=== PATIENT | female | born 1995 | race Caucasian/White ===

== ENCOUNTER → 2019-09-21 | Outpatient (CLI) | payer OTHER ==
--- NOTE | 2019-09-21 19:03 | Diagnostic Imaging Report ---
PROCEDURE: US Thyroid. TECHNIQUE: Multiple real-time grayscale images were obtained of the thyroid in various projections. INDICATION: Thyromegaly Right and left lobes of the thyroid gland measure 4.7 x 1.5 x 1.4 cm and 4.7 x 0.9 x 1.2 cm, respectively. There is no evidence of thyroid mass. No hyperemia is identified. There is no evidence of periglandular abnormalities. IMPRESSION: Unremarkable thyroid ultrasound. Dictated by: Dictated on workstation # [id number]
== END ==
LOC: RAD 14:50
PROVIDERS: ATTEND Nurse Practitioner Primary Care
DX: E04.9 Nontoxic goiter, unspecified (principal)
CPT/HCPCS: 76536